=== PATIENT | female | born 1965 | race Two or more races ===

== ENCOUNTER 2024-09-01 17:48 | Emergency (ER) | payer OTHER ==
[~2024-09-01] VITALS: Ht 162.6 cm; Wt 73.9 kg
[~2024-09-01 17:48] MED LIST: IBUPROFEN800 MG PO; ORPH100T PO
[2024-09-01 18:59] VITALS: BP 138/79; O2SAT 100
[2024-09-01] MEDS ORDERED: SIMVASTATIN40 MG PO (18:59)
[2024-09-01] MEDS ORDERED: LISINOPRIL5 MG PO (18:59)
[2024-09-01] MEDS ORDERED: ATENOLOL25 MG PO (18:59)
[2024-09-01] MEDS ORDERED: KETOROLAC TROMETHAMINE 60 MG VIAL IM ONE (21:00)
[2024-09-01] MEDS ORDERED: ORPHENADRINE CITRATE 30 MG/ML AMPUL IM ONE (21:00)
[2024-09-01] MEDS ORDERED: NORFLEX100MG PO (21:35)
[2024-09-01] MEDS ORDERED: DICLOFENAC SODI50 MG PO (21:35)
== END 2024-09-01 21:53 ==
LOC: ER 17:50
DX: M54.16 Radiculopathy, lumbar region (principal); I10 Essential (primary) hypertension